=== PATIENT | female | born 1990 | race Hispanic/Latino ===

== ENCOUNTER → 2024-10-23 | Outpatient (CLI) | payer OTHER, SELFPAY ==
--- NOTE | 2024-10-23 10:17 | RAD_ITS ---
PROCEDURE: LUMBAR SPINE 2 OR 3 VIEWS REASON FOR EXAM: Low back pain. TECHNIQUE: 3 view(s) of the lumbar spine COMPARISON: None. FINDINGS: Normal lumbar vertebral heights. No evidence of fracture. Disc space heights are preserved. Normal alignment. No spondylolisthesis. RAD/Lumbar Spine 2 or 3 Views IMPRESSION: NEGATIVE LUMBAR SPINE. Reading Location: [id number]
== END | disposition home or self-care (01) ==
LOC: RAD 10:16
PROVIDERS: PCP Internal Medicine; Referring Provider Chiropractor; Visit Provider Chiropractor
DX: M54.31 Sciatica, right side (principal)
CPT/HCPCS: 72100